=== PATIENT | female | born 1960 | race Caucasian/White ===

== ENCOUNTER 2017-04-26 17:40 | Emergency (ER) | payer BC ==
[2017-04-26 17:57] VITALS: BP 144/80
[2017-04-26] MEDS ORDERED: DOXYcycline CAP(*) 100 MG PO ONE (18:49)
--- NOTE | 2017-04-26 18:56 | ED ---
Throat Pain/Nasal Congestion - HPI Summary HPI Summary: 56 female presents to ED with complaints of sinus pressure, nasal congestion, green/yellow discharge from nose and mouth and roof of mouth pain. States she has been having these "sinus-like symptoms" for the past 2 weeks without significant relief. Has not taken any medication other than ibuprofen to help with pain/discomfort. Denies known fever. Admits to some cough intermittently. No sore throat. No other complaints. - History of Current Complaint Chief Complaint: EDFluSymptoms Time Seen by Provider: 04/26/17 18:17 Hx Obtained From: Patient Onset/Duration: Sudden Onset, Lasting Weeks, Still Present, Worse Since Severity: Moderate Associated Signs And Symptoms: Positive: Sinus Discomfort, Nasal Discharge Cough: Nonproductive - Allergies/Home Medications Allergies/Adverse Reactions: Allergies Allergy/AdvReac Type Severity Reaction Status Date / Time cefaclor [From [facility]] Allergy Hives Verified 04/26/17 18:51 Cephalosporins Allergy Hives Verified 04/26/17 18:51 Penicillins Allergy Hives Verified 04/26/17 18:51 PMH/Surg Hx/FS Hx/Imm Hx Endocrine/Hematology History: Denies: Hx Anticoagulant Therapy Cardiovascular History: Reports: Hx Hypertension Respiratory History: Denies: Hx Asthma - Surgical History Surgery Procedure, Year, and Place: n/a - Immunization History Immunizations Up to Date: Yes Infectious Disease History: No Infectious Disease History: Denies: Traveled Outside the [place] in Last 30 Days - Family History Known Family History: Positive: Hypertension - Social History Alcohol Use: None Substance Use Type: Reports: None Smoking Status (MU): Former Smoker Review of Systems Constitutional: Negative Positive: Nasal Discharge, Other - sinus pressure/pain Cardiovascular: Negative Positive: Cough Gastrointestinal: Negative Positive: Headache All Other Systems Reviewed And Are Negative: Yes Physical Exam Triage Information Reviewed: Yes Vital Signs On Initial Exam: Initial Vitals Temp Pulse Resp BP Pulse Ox 98.1 F 94 19 144/80 100 04/26/17 17:54 04/26/17 17:54 04/26/17 17:54 04/26/17 17:54 04/26/17 17:54 Vital Signs Reviewed: Yes Appearance: Positive: Well-Appearing, No Pain Distress, Well-Nourished Skin: Positive: Warm, Skin Color Reflects Adequate Perfusion, Dry. Negative: Cold Head/Face: Positive: Normal Head/Face Inspection. Negative: Scalp Eyes: Positive: Conjunctiva Clear ENT: Positive: Hearing grossly normal, Pharyngeal erythema, Nasal congestion, TMs normal, Sinus tenderness, Uvula midline - airway patent. Negative: Tonsillar swelling, Tonsillar exudate Dental: Positive: Percussion Tenderness @ - maxillary and frontal b/l, Gross Decay/Caries @ - malodorous, Cervical Lymphadenopathy Neck: Positive: Supple Respiratory/Lung Sounds: Positive: Clear to Auscultation, Breath Sounds Present. Negative: Rales, Rhonchi, Wheezes Cardiovascular: Positive: Normal, RRR, Pulses are Symmetrical in both Upper and Lower Extremities. Negative: Murmur, Rub Neurological: Positive: Normal Diagnostics - Vital Signs Vital Signs Temp Pulse Resp BP Pulse Ox 04/26/17 17:54 98.1 F 94 19 144/80 100 - Laboratory Lab Statement: Any lab studies that have been ordered have been reviewed, and results considered in the medical decision making process. EENT Course/Dx - Course Course Of Treatment: given doxycycline first dose while in ED. appears to be suffering from sinusitis. continue ibuprofen as needed for pain, flonase and fluids. hot showers, warm compresses, good oral hygiene and salt water gargles. aware of worsening signs and symptoms to watch out for. normal vitals. no other complaints at this time. no other concerns. follow up pcp for recheck. - Differential Diagnoses Differential Diagnoses: Sinusitis, URI/Bronchitis - Diagnoses Provider Diagnoses: Sinusitis Discharge - Discharge Plan Condition: Stable Disposition: HOME Prescriptions: DOXYcycline CAP(*) [DOXYcycline 100MG CAP(*)] 100 mg PO BID #13 cap Fluticasone NASAL SPRAY 50MCG* [Flonase NASAL SPRAY 50MCG*] 2 spray BOTH NARES DAILY #1 btl Patient Education Materials: Sinusitis (ED), Warm Compress or Soak (ED) Referrals: [facility] [place] [facility]FERR[facility] [Outside] Additional Instructions: Recommend excedrin as needed starting tomorrow for pain or consider trying aleve or just tylenol. Increase fluid intake. Take prescribed antibiotic as directed for 7 days until entire dose is finished. Avoid direct sun light and use of tanning beds while taking this medication. Flonase for nasal congestion. Keep good oral hygiene, brush multiple times daily. Recommend nasal saline rinses/josef pots to eliminate congestion in sinus and help reduce headache/pressure. Also recommend warm compresses to cheeks and hot showers to help drain sinus. Follow up with PCP. Any new or worsening symptoms please seek medical attention promptly.
== END 2017-04-26 19:05 | disposition home or self-care (01) ==
LOC: ED 17:40
DX: J32.9 Chronic sinusitis, unspecified (principal); R05 Cough; R51 Headache; F17.210 Nicotine dependence, cigarettes, uncomplicated; Z86.79 Personal history of other diseases of the circulatory system
CPT/HCPCS: 99282; A9270-GY

== ENCOUNTER 2017-07-17 16:50 | Emergency (ER) | payer SELFPAY ==
[2017-07-17 17:12] VITALS: BP 138/76
[2017-07-17] MEDS ORDERED: DOXYcycline CAP(*) 100 MG PO ONE (18:39)
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
== END 2017-07-17 19:15 | disposition home or self-care (01) ==
LOC: ED 16:50
DX: J01.90 Acute sinusitis, unspecified (principal); R51 Headache; F17.210 Nicotine dependence, cigarettes, uncomplicated; Z86.79 Personal history of other diseases of the circulatory system
CPT/HCPCS: 99282; A9270-GY

== ENCOUNTER 2017-07-19 11:34 | Emergency (ER) | payer SELFPAY ==
[2017-07-19] MEDS ORDERED: predniSONE TAB* 20 MG PO ONE (12:38)
[2017-07-19] MEDS ORDERED: predniSONE TAB* 10 MG PO ONE (12:39)
[2017-07-19 13:15] VITALS: BP 145/91
--- NOTE | 2017-07-19 15:07 | ED ---
Yanci Hall Elizabeth, scribed for Antonio Frias MD on 07/19/17 at 1246 . Allergic Reaction/Systemic - HPI Summary HPI Summary: This patient is a 56 year old F presenting to [facility] with a chief complaint of facial swelling since 3 days ago Patient was seen at [facility] 3 days ago for the same symptoms. The patient rates the pain 2/10 in severity. Symptoms alleviated by nothing. Patient reports itchy eyes and tooth pain. The patient is currently taking doxycycline. She has hx of seasonal allergies and a previous nose injury. - History of Current Complaint Chief Complaint: EDFacialInjury Time Seen by Provider: 07/19/17 12:16 Hx Obtained From: Patient Onset/Duration: Started days ago - started 3 days ago, Still Present Timing: Constant Severity Initially: Mild Severity Currently: Mild Pain Intensity: 2 Pain Scale Used: 0-10 Numeric Location: Discrete @ - face (facial swelling) Character: Swelling - facial swelling Alleviating Factor(s): Nothing Associated Signs And Symptoms: Positive: Other: - tooth pain, itchy eyes - Related Hx Possible Reaction To: Environmental Exposure - Allergies/Home Medications Allergies/Adverse Reactions: Allergies Allergy/AdvReac Type Severity Reaction Status Date / Time cefaclor [From [facility]] Allergy Hives Verified 07/17/17 17:12 Cephalosporins Allergy Hives Verified 07/17/17 17:12 Penicillins Allergy Hives Verified 07/17/17 17:12 Home Medications: Home Medications Levothyroxine TAB* [Synthroid TAB*] 125 mcg PO DAILY 07/19/17 [History Confirmed 07/19/17] Lisinopril/HCTZ 20/12.5(NF) [Zestoretic 20/12.5(NF)] 1 tab PO DAILY 07/19/17 [ History Confirmed 07/19/17] PMH/Surg Hx/FS Hx/Imm Hx Endocrine/Hematology History: Denies: Hx Anticoagulant Therapy Cardiovascular History: Reports: Hx Hypertension Respiratory History: Reports: Hx Seasonal Allergies Denies: Hx Asthma - Surgical History Surgery Procedure, Year, and Place: n/a Infectious Disease History: No Infectious Disease History: Denies: Traveled Outside the [place] in Last 30 Days - Family History Known Family History: Positive: Hypertension - Social History Alcohol Use: Occasionally Substance Use Type: Reports: None Smoking Status (MU): Light Every Day Tobacco Smoker Review of Systems Positive: Dental Pain, Other - facial swelling Negative: Shortness Of Breath Positive: Edema - facial swelling Negative: Rash All Other Systems Reviewed And Are Negative: Yes Physical Exam - Summary Physical Exam Summary: Appearance: The patient is well-nourished in no acute distress and in no acute pain. Skin: The skin is warm and dry and skin color reflects adequate perfusion. HEENT: Bilateral lower swelling to the lower face. Poor maxillary dentition. The pupils are equal and reactive. The conjunctivae are clear and without drainage. Nares are patent and without drainage. Mouth reveals moist mucous membranes and the throat is without erythema and exudate. The external ears are intact. The ear canals are patent and without drainage. The tympanic membranes are intact. Neck: the neck is supple with full range of motion and non-tender. There are no carotid bruits. There is no neck vein distension. Respiratory: Chest is non-tender. Lungs are clear to auscultation and breath sounds are symmetrical and equal. Cardiovascular: Heart is regular rate and rhythm. There is no murmur or rub auscultated. There is no peripheral edema and pulses are symmetrical and equal. Abdomen: The abdomen is soft and non-tender. There are normal bowel sounds heard in all four quadrants and there is no organomegaly palpated. Musculoskeletal: There is no back tenderness noted. Extremities are non-tender with full range of motion. There is good capillary refill. There is no peripheral edema or calf tenderness elicited. Neurological: Patient is alert and oriented to person, place and time. The patient has symmetrical motor strength in all four extremities. Cranial nerves are grossly intact. Deep tendon reflexes are symmetrical and equal in all four extremities. Psychiatric: The patient has an appropriate affect and does not exhibit any anxiety or depression. Triage Information Reviewed: Yes Vital Signs On Initial Exam: Initial Vitals Temp Pulse Resp BP Pulse Ox 99.1 F 88 15 154/96 98 07/19/17 11:42 07/19/17 11:42 07/19/17 11:42 07/19/17 11:42 07/19/17 11:42 Vital Signs Reviewed: Yes Diagnostics - Vital Signs Vital Signs Temp Pulse Resp BP Pulse Ox 07/19/17 11:42 99.1 F 88 15 154/96 98 - Laboratory Lab Statement: Any lab studies that have been ordered have been reviewed, and results considered in the medical decision making process. Allergic Reaction Course/Dx - Course Course Of Treatment: Ms. Espinosa has had facial swelling, mild pain and itching for 2-3 days. She is on doxycycline for a presumed infection. She isn't really tender and I think this is mostly allergic reaction. I will continue the antibiootic and add prednisone. - Diagnoses Provider Diagnoses: Allergic reaction Discharge - Sign-Out/Discharge Documenting (check all that apply): Discharge/Admit/Transfer - Discharge Plan Condition: Stable Disposition: HOME Patient Education Materials: Allergies (ED) Forms: *Work Release Referrals: Linn Gillespie NP [Primary Care Provider] - 2 Days Additional Instructions: Follow up with primary care physician in 2-3 days. Follow up with EENT physician. Return to the emergency department with any new or worsening symptoms. - Billing Disposition and Condition Condition: STABLE Disposition: HOME The documentation as recorded by the Yanci santos Elizabeth accurately reflects the service I personally performed and the decisions made by me, Antonio Frias MD.
== END 2017-07-19 13:14 | disposition home or self-care (01) ==
LOC: ED 11:34
DX: T78.40XA Allergy, unspecified, initial encounter (principal); X58.XXXA Exposure to other specified factors, initial encounter; I10 Essential (primary) hypertension; Z72.0 Tobacco use; Z88.0 Allergy status to penicillin
CPT/HCPCS: 99282; J7512